=== PATIENT | male | born 1990 | race Two or more races ===

== ENCOUNTER → 2020-03-24 | Outpatient (CLI) | payer BC | END | disposition home or self-care (01) | LOC: LAB 08:14 | PROVIDERS: ATTEND Nurse Practitioner Family | DX: Z20.828 Contact with and (suspected) exposure to other viral communicable diseases (principal) | CPT/HCPCS: 36415; 87426; C9803; U0003 ==

== ENCOUNTER 2022-09-15 17:42 | Emergency (ER) | payer BC ==
[~2022-09-15] VITALS: Ht 170.2 cm; Wt 79.5 kg
[2022-09-15 17:46] VITALS: BP 119/75
[2022-09-15] MEDS ORDERED: AZITHROMYCIN 250 MG TAB PO ONE (18:00)
[2022-09-15] MEDS ORDERED: cefTRIAXone SOD 1,000 MG VL IM ONE (18:00)
[2022-09-15 18:10] LABS: Urine WBC None Seen /hpf (0 - 3)
[2022-09-15 18:38] LABS: Urine Bacteria NONE SEEN /hpf (None Seen); Urine Blood Negative /uL (Negative); Urine Mucus FEW (None Seen); Urine Specific Gravity 1.021 (1.001-1.035)
[2022-09-17 12:29] LABS: Hepatitis A Ab IgM Negative
[2022-09-17 12:31] LABS: Hepatitis B Core IgM Negative; Hepatitis C Antibody Negative (Negative)
[2022-09-18 07:07] LABS: RPR Non Reactive (Non Reactive)
== END 2022-09-15 18:35 | disposition left against medical advice (07) ==
LOC: ER 17:42
DX: R30.0 Dysuria (principal); A64 Unspecified sexually transmitted disease
CPT/HCPCS: 36415; 80074; 81001; 86592; 87086; 87491; 87591; 96372; 99283; J0696